=== PATIENT | male | born 1980 ===

== ENCOUNTER 2016-09-01 19:30 | Emergency (ER) | payer SELFPAY ==
[~2016-09-01] VITALS: Ht 175.3 cm; Wt 100.0 kg
[2016-09-01 19:55] VITALS: BP 126/77
== END 2016-09-01 22:29 | disposition left against medical advice (07) ==
LOC: EMS 19:33
DX: T22.412A Corrosion of unspecified degree of left forearm, initial encounter (principal); T65.91XA Toxic effect of unspecified substance, accidental (unintentional), initial encounter; Y92.89 Other specified places as the place of occurrence of the external cause; Z53.21 Procedure and treatment not carried out due to patient leaving prior to being seen by health care provider